=== PATIENT | male | born 1995 | race Caucasian/White ===

== ENCOUNTER 2023-08-01 20:02 | Emergency (ER) | payer BC ==
[~2023-08-01] VITALS: Ht 188 cm; Wt 86.2 kg
[~2023-08-01 20:02] MED LIST: ACET325 PO; ACET500 PO; ALBU90OI INH; BISA5EC PO; CEPH500 PO; DOC250 PO; HYDACE5 PO; IBUP600 PO; MINOIL PR; SULTRIDS PO
[2023-08-01 20:22] VITALS: BP 123/76
[2023-08-01 21:15] LABS: Influenza A, PCR NEGATIVE (NEGATIVE); Influenza B, PCR NEGATIVE (NEGATIVE); Resp Syncytial Virus, PCR NEGATIVE (NEGATIVE)
[2023-08-01 21:17] LABS: SARS-Cov-2 (COVID-19) PCR, MMC POSITIVE (NEGATIVE)
[2023-08-01 21:47] LABS: Source, Urine Clean Catch
[2023-08-01 21:51] LABS: Bilirubin, Urine Neg (Neg); Blood, Urine Neg (Neg); Glucose Qualitative, Urine Neg (Neg); Ketones, Urine Neg (Neg); Leukocyte Esterase, Urine Neg (Neg); Nitrite, Urine Neg (Neg); Protein, Urine Neg (Neg); Specific Gravity, Urine 1.015 (1.003-1.022); Urobilinogen, Urine NORM (Normal); pH, Urine 6.5 (5.0-8.0)
[2023-08-01 21:58] LABS: Appearance, Urine Clear (Clear); Color, Urine Pale Yellow (P-Yellow)
== END 2023-08-01 22:27 | disposition home or self-care (01) ==
LOC: ER 20:02
PROVIDERS: Emergency Medicine; Student in an Organized Health Care Education/Training Program
DX: U07.1 COVID-19 (principal); J40 Bronchitis, not specified as acute or chronic; R30.0 Dysuria; F17.200 Nicotine dependence, unspecified, uncomplicated; Z79.899 Other long term (current) drug therapy
CPT/HCPCS: 0241U; 81003; 99283